=== PATIENT | female | born 2000 | race Caucasian/White ===

== ENCOUNTER → 2018-02-19 | Outpatient (CLI) | payer BC ==
--- NOTE | 2018-02-19 13:00 | CT ---
EXAMINATION TYPE: CT abdomen pelvis wo con DATE OF EXAM: 02/19/2018 COMPARISON: None INDICATION: Left sided abdominal pain DLP: 356.0 mGycm, Automated exposure control for dose reduction was used. CONTRAST: 0 mL of Isovue 300. Study performed without Oral Contrast TECHNIQUE: Axial images were obtained from above the diaphragm to the pubic rami in the axial plane a t 5 mm thick sections. Reconstructed images are reviewed on the computer in the coronal plane. FINDINGS: Limited CT sections are obtained the lung bases. The lung bases are clear. CT ABDOMEN: Liver: Normal Spleen: Normal Pancreas: Normal Adrenal glands: The adrenal glands are normal. Gallbladder: Normal Kidneys: No masses are evident. No hydronephrosis is present. No cysts are present. Delayed images were obtained through the kidneys, which remain unremarkable. Aorta: Vascular calcification is within the aorta. Inferior vena cava: Normal. CT PELVIS: Loops of bowel within the abdomen and pelvis are normal. Studies without oral contrast limiting t he evaluation. Appendix: Limited evaluation. This may be retrocecal. No dilated tubular structures or inflammatory c hanges are evident. The cecum appears to lie deep within the pelvis. Urinary bladder: Normal. Genitourinary structures: There is a 4.3 x 5.4 cm left ovarian cyst. Correlate with location of the p atient's pain. Pelvic ultrasound could be performed. No free fluid is within the pelvis. Osseous structures: No suspicious lytic or sclerotic lesions. IMPRESSIONS: 1. There appears be a large left ovarian cyst. Pelvic ultrasound recommended for additional evaluati on.
== END | disposition home or self-care (01) ==
LOC: RADCTMAIN 12:05
PROVIDERS: ATTEND Nurse Practitioner Family
DX: R10.9 Unspecified abdominal pain (principal)
CPT/HCPCS: 74176

== ENCOUNTER 2018-03-11 16:11 | Emergency (ER) | payer BC ==
[2018-03-11] MEDS ORDERED: ONDANSETRON 4 MG/2 ML VIAL IVP STA (16:34)
[2018-03-11] MEDS ORDERED: SODIUM CHLORIDE 0.9% 1,000 ML IV STA (16:34)
[2018-03-11] MEDS ORDERED: KETOROLAC 30 MG/ML 1 ML VIAL IVP STA (16:34)
[2018-03-11 17:06] LABS: Basophils % (A) 0 %; Eosinophils # (A) 0.1 k/uL (0-0.7); Eosinophils % (A) 1 %; HCT 39.6 % (34.0-46.0); Lymphocytes # (A) 3.2 k/uL (1.0-4.8); Lymphocytes % (A) 40 %; MCH 30.6 pg (25.0-35.0); MCHC 32.9 g/dL (31.0-37.0); Mean Platelet Volume 6.9; Monocytes # (A) 0.3 k/uL (0-1.0); Monocytes % (A) 3 %; Neutrophils # (A) 4.3 k/uL (1.3-7.7); Neutrophils % (A) 54 %; Platelet Count 279 k/uL (150-450); RBC 4.26 m/uL (3.80-5.40); RDW 12.4 % (11.5-15.5)
[2018-03-11 17:13] LABS: ALT 25 U/L (9-52); AST 21 U/L (14-36); Albumin 4.2 g/dL (3.5-5.0); Alkaline Phosphatase 31 U/L (38-126); Amylase 59 U/L (30-110); Anion Gap 7 mmol/L; Blood Urea Nitrogen 14 mg/dL (7-17); Calcium 9.5 mg/dL (8.4-10.2); Carbon Dioxide 26 mmol/L (22-30); Chloride 106 mmol/L (98-107); Glucose 88 mg/dL (74-99); Lipase 75 U/L (23-300); Potassium 4.6 mmol/L (3.5-5.1); Sodium 139 mmol/L (137-145); Total Bilirubin 0.5 mg/dL (0.2-1.3); Total Protein 7.4 g/dL (6.3-8.2)
--- NOTE | 2018-03-11 17:25 | ED ---
Abdominal Pain HPI - General Chief Complaint: Abdominal Pain Stated Complaint: Abd.pain Time Seen by Provider: 03/11/18 16:18 Source: patient, RN notes reviewed Mode of arrival: ambulatory Limitations: no limitations - History of Present Illness Initial Comments: 17-year-old female presents emergency Department chief complaint of left-sided abdominal pain. Patient states she's been having ongoing symptoms in which she had a recent CT at the beginning a month for. Patient was noted have ovarian cysts had no further ultrasound. They told her that was probably not causing her symptoms. Patient does state the pain to her lower abdomen at this time. She states is constant pain but does wax and wane. She's had no hematuria, dysuria, vaginal bleeding, vaginal discharge, diarrhea, constipation, fever, chills. She does admit to slight nausea, diarrhea. Patient states she felt like she was given a pass out from the pain today. - Related Data Home Medications Medication Instructions Recorded Confirmed Levothyroxine Sodium [Synthroid] 125 mcg PO DAILY 03/11/18 03/11/18 Norgestimate-Ethinyl Estradiol 1 tab PO HS 03/11/18 03/11/18 [Ortho Tri-Cyclen 28 Tablet] Previous Rx's Medication Instructions Recorded Ibuprofen [Motrin] 600 mg PO Q8HR PRN #30 tab 03/11/18 Allergies Allergy/AdvReac Type Severity Reaction Status Date / Time Sulfa (Sulfonamide AdvReac Nausea & Verified 03/11/18 16:27 Antibiotics) Vomiting Review of Systems ROS Statement: Those systems with pertinent positive or pertinent negative responses have been documented in the HPI. ROS Other: All systems not noted in ROS Statement are negative. Past Medical History Past Medical History: No Reported History History of Any Multi-Drug Resistant Organisms: None Reported Past Surgical History: No Surgical Hx Reported Past Psychological History: No Psychological Hx Reported Smoking Status: Never smoker Past Alcohol Use History: None Reported Past Drug Use History: None Reported General Exam Limitations: no limitations General appearance: alert, in no apparent distress Head exam: Present: atraumatic, normocephalic, normal inspection Eye exam: Present: normal appearance, PERRL, EOMI. Absent: scleral icterus, conjunctival injection, periorbital swelling ENT exam: Present: normal exam, normal oropharynx, mucous membranes moist Neck exam: Present: normal inspection. Absent: tenderness, meningismus, lymphadenopathy Respiratory exam: Present: normal lung sounds bilaterally. Absent: respiratory distress, wheezes, rales, rhonchi, stridor Cardiovascular Exam: Present: regular rate, normal rhythm, normal heart sounds. Absent: systolic murmur, diastolic murmur, rubs, gallop, clicks GI/Abdominal exam: Present: soft, tenderness (Mild to moderate left lower quadrant tenderness), normal bowel sounds. Absent: distended, guarding, rebound , rigid Back exam: Absent: CVA tenderness (R), CVA tenderness (L) Neurological exam: Present: alert, oriented X3, CN II-XII intact Skin exam: Present: warm, dry, intact, normal color. Absent: rash Course Vital Signs 03/11/18 03/11/18 03/11/18 16:14 17:00 18:00 Temperature 97.6 F Pulse Rate 67 Respiratory 20 18 16 Rate Blood Pressure 148/83 119/83 117/62 O2 Sat by Pulse 99 99 98 Oximetry 03/11/18 03/11/18 18:30 19:00 Temperature Pulse Rate 85 Respiratory 16 18 Rate Blood Pressure 119/77 122/76 O2 Sat by Pulse 98 98 Oximetry Medical Decision Making - Medical Decision Making 17-year-old female presents emergency department for left-sided abdominal pain. Patient had recent CT which showed ovarian cyst. Patient pain is lower in that region. He states WAS OBTAINED RECOMMENDED BY RADIOLOGIST WHICH SHOWED SIMPLE APPEARING CYST. PATIENT HAS OTHERWISE NORMAL LAB WORK, URINALYSIS. PATIENT WILL BE DISCHARGED WITH PAIN MEDICATION, FOLLOW-UP WITH [facility]. - Lab Data Result diagrams: 03/11/18 16:49 03/11/18 16:49 Lab Results 03/11/18 03/11/18 03/11/18 Range/Units 16:49 16:49 16:49 WBC 8.0 (4.0-11.0) k/uL RBC 4.26 (3.80-5.40) m/uL Hgb 13.0 (11.4-16.0) gm/dL Hct 39.6 (34.0-46.0) % MCV 93.0 (80.0-100.0) fL MCH 30.6 (25.0-35.0) pg MCHC 32.9 (31.0-37.0) g/dL RDW 12.4 (11.5-15.5) % Plt Count 279 (150-450) k/uL Neutrophils % 54 % Lymphocytes % 40 % Monocytes % 3 % Eosinophils % 1 % Basophils % 0 % Neutrophils # 4.3 (1.3-7.7) k/uL Lymphocytes # 3.2 (1.0-4.8) k/uL Monocytes # 0.3 (0-1.0) k/uL Eosinophils # 0.1 (0-0.7) k/uL Basophils # 0.0 (0-0.2) k/uL D-Dimer (<0.60) mg/L FEU Sodium 139 (137-145) mmol/L Potassium 4.6 (3.5-5.1) mmol/L Chloride 106 (98-107) mmol/L Carbon Dioxide 26 (22-30) mmol/L Anion Gap 7 mmol/L BUN 14 (7-17) mg/dL Creatinine 0.69 (0.52-1.04) mg/dL Est GFR (CKD-EPI)AfAm >90 (>60 ml/min/1.73 sqM) Est GFR (CKD-EPI)NonAf >90 (>60 ml/min/1.73 sqM) Glucose 88 (74-99) mg/dL Plasma Lactic Acid George 0.8 (0.7-2.0) mmol/L Calcium 9.5 (8.4-10.2) mg/dL Magnesium (1.6-2.3) mg/dL Total Bilirubin 0.5 (0.2-1.3) mg/dL AST 21 (14-36) U/L ALT 25 (9-52) U/L Alkaline Phosphatase 31 L (38-126) U/L Troponin I (0.000-0.034) ng/mL Total Protein 7.4 (6.3-8.2) g/dL Albumin 4.2 (3.5-5.0) g/dL Amylase 59 (30-110) U/L Lipase 75 (23-300) U/L Urine Color Urine Appearance (Clear) Urine pH (5.0-8.0) Ur Specific Rose (1.001-1.035) Urine Protein (Negative) Urine Glucose (UA) (Negative) Urine Ketones (Negative) Urine Blood (Negative) Urine Nitrite (Negative) Urine Bilirubin (Negative) Urine Urobilinogen (<2.0) mg/dL Ur Leukocyte Esterase (Negative) Urine HCG, Qual (Not Detectd) 03/11/18 03/11/18 03/11/18 Range/Units 16:49 16:49 16:49 WBC (4.0-11.0) k/uL RBC (3.80-5.40) m/uL Hgb (11.4-16.0) gm/dL Hct (34.0-46.0) % MCV (80.0-100.0) fL MCH (25.0-35.0) pg MCHC (31.0-37.0) g/dL RDW (11.5-15.5) % Plt Count (150-450) k/uL Neutrophils % % Lymphocytes % % Monocytes % % Eosinophils % % Basophils % % Neutrophils # (1.3-7.7) k/uL Lymphocytes # (1.0-4.8) k/uL Monocytes # (0-1.0) k/uL Eosinophils # (0-0.7) k/uL Basophils # (0-0.2) k/uL D-Dimer 0.30 (<0.60) mg/L FEU Sodium (137-145) mmol/L Potassium (3.5-5.1) mmol/L Chloride (98-107) mmol/L Carbon Dioxide (22-30) mmol/L Anion Gap mmol/L BUN (7-17) mg/dL Creatinine (0.52-1.04) mg/dL Est GFR (CKD-EPI)AfAm (>60 ml/min/1.73 sqM) Est GFR (CKD-EPI)NonAf (>60 ml/min/1.73 sqM) Glucose (74-99) mg/dL Plasma Lactic Acid George (0.7-2.0) mmol/L Calcium (8.4-10.2) mg/dL Magnesium 2.0 (1.6-2.3) mg/dL Total Bilirubin (0.2-1.3) mg/dL AST (14-36) U/L ALT (9-52) U/L Alkaline Phosphatase (38-126) U/L Troponin I <0.012 (0.000-0.034) ng/mL Total Protein (6.3-8.2) g/dL Albumin (3.5-5.0) g/dL Amylase (30-110) U/L Lipase (23-300) U/L Urine Color Urine Appearance (Clear) Urine pH (5.0-8.0) Ur Specific Rose (1.001-1.035) Urine Protein (Negative) Urine Glucose (UA) (Negative) Urine Ketones (Negative) Urine Blood (Negative) Urine Nitrite (Negative) Urine Bilirubin (Negative) Urine Urobilinogen (<2.0) mg/dL Ur Leukocyte Esterase (Negative) Urine HCG, Qual (Not Detectd) 03/11/18 03/11/18 Range/Units 18:30 18:30 WBC (4.0-11.0) k/uL RBC (3.80-5.40) m/uL Hgb (11.4-16.0) gm/dL Hct (34.0-46.0) % MCV (80.0-100.0) fL MCH (25.0-35.0) pg MCHC (31.0-37.0) g/dL RDW (11.5-15.5) % Plt Count (150-450) k/uL Neutrophils % % Lymphocytes % % Monocytes % % Eosinophils % % Basophils % % Neutrophils # (1.3-7.7) k/uL Lymphocytes # (1.0-4.8) k/uL Monocytes # (0-1.0) k/uL Eosinophils # (0-0.7) k/uL Basophils # (0-0.2) k/uL D-Dimer (<0.60) mg/L FEU Sodium (137-145) mmol/L Potassium (3.5-5.1) mmol/L Chloride (98-107) mmol/L Carbon Dioxide (22-30) mmol/L Anion Gap mmol/L BUN (7-17) mg/dL Creatinine (0.52-1.04) mg/dL Est GFR (CKD-EPI)AfAm (>60 ml/min/1.73 sqM) Est GFR (CKD-EPI)NonAf (>60 ml/min/1.73 sqM) Glucose (74-99) mg/dL Plasma Lactic Acid George (0.7-2.0) mmol/L Calcium (8.4-10.2) mg/dL Magnesium (1.6-2.3) mg/dL Total Bilirubin (0.2-1.3) mg/dL AST (14-36) U/L ALT (9-52) U/L Alkaline Phosphatase (38-126) U/L Troponin I (0.000-0.034) ng/mL Total Protein (6.3-8.2) g/dL Albumin (3.5-5.0) g/dL Amylase (30-110) U/L Lipase (23-300) U/L Urine Color Light Yellow Urine Appearance Clear (Clear) Urine pH 5.5 (5.0-8.0) Ur Specific Rose 1.015 (1.001-1.035) Urine Protein Negative (Negative) Urine Glucose (UA) Negative (Negative) Urine Ketones Trace H (Negative) Urine Blood Negative (Negative) Urine Nitrite Negative (Negative) Urine Bilirubin Negative (Negative) Urine Urobilinogen <2.0 (<2.0) mg/dL Ur Leukocyte Esterase Negative (Negative) Urine HCG, Qual Not Detected (Not Detectd) 03/11/18 18:44 EKG performed at 18:25 normal sinus rhythm with a right axis rate of 63 OR 198 QRS 90 QT/QTC 410/419 is noted inverted T waves V1 through V4 Disposition Clinical Impression: Ovarian cyst, Abdominal pain, Vasovagal syncope Disposition: HOME SELF-CARE Condition: Stable Instructions: Ovarian Cyst (ED) Additional Instructions: Please return to the Emergency Department if symptoms worsen or any other concerns. Prescriptions: Ibuprofen [Motrin] 600 mg PO Q8HR PRN #30 tab PRN Reason: Pain Is patient prescribed a controlled substance at d/c from ED?: No Referrals: Yoanna Hernandez DO [Primary Care Provider] - 1-2 days Time of Disposition: 19:50
[2018-03-11 18:52] LABS: Appearance,Urine Clear (Clear); Bilirubin,Urine Negative (Negative); Blood,Urine Negative (Negative); Color,Urine Light Yellow; Glucose,Urine (UA) Negative (Negative); Ketones,Urine Trace (Negative); Leukocyte Esterase,Urine Negative (Negative); Nitrite,Urine Negative (Negative); PH, Urine 5.5 (5.0-8.0); Protein,Urine Negative (Negative); Specific Gravity,Urine 1.015 (1.001-1.035); Urobilinogen,Urine <2.0 mg/dL (<2.0)
[2018-03-11] MEDS ORDERED: MORPHINE SULFATE 2 MG/ML SYRINGE IVP STA (19:20)
[2018-03-11 19:25] VITALS: RESP 18
--- NOTE | 2018-03-11 19:33 | US ---
EXAMINATION TYPE: US transvaginal DATE OF EXAM: 03/11/2018 COMPARISON: CLINICAL HISTORY: Pain. Left side pain. Nausea. TECHNIQUE: Transvaginal (TV). Date of LMP: 03/01/2018, G0 EXAM MEASUREMENTS: Uterus: 8.1 x 4.6 x 3.3 cm Endometrial Stripe: 0.4 cm Right Ovary: 3.0 x 1.3 x 1.4 cm Left Ovary: 3.4 x 2.4 x 2.3 cm 1. Uterus: Anteverted wnl 2. Endometrium: wnl 3. Right Ovary: follicles seen 4. Left Ovary: cystic appearing lesion- 3.3 x 1.7 x 1.2 cm Spectral, color and waveform doppler imaging shows good arterial and venous flow within the ovaries ; there is no evidence for ovarian torsion. 5. Bilateral Adnexa: wnl 6. Posterior cul-de-sac: no free fluid cervix- wnl IMPRESSION: Normal uterus and endometrium. Simple left ovarian cyst. No evidence of ovarian torsion.
[2018-03-11] MEDS ORDERED: ACET/COD 300 MG/30 MG STARTER PACK 6 TAB BTL PO STA (19:49)
[2018-03-11 19:57] VITALS: BP 114/69; PULSE 69
[2018-03-11 20:08] VITALS: TEMP 98
== END 2018-03-11 20:06 | disposition home or self-care (01) ==
LOC: EC 16:11
DX: N83.202 Unspecified ovarian cyst, left side (principal); R55 Syncope and collapse; R94.31 Abnormal electrocardiogram [ECG] [EKG]; R11.0 Nausea; R19.7 Diarrhea, unspecified; Z88.2 Allergy status to sulfonamides; Z79.3 Long term (current) use of hormonal contraceptives; Z79.899 Other long term (current) drug therapy
CPT/HCPCS: 96375 ×3; 96361 ×2; 96374 ×2; 99284; 36415; 93005; 85379; 80053; 82150; 83605; 83690; 83735; 84484; 85025; 81003; 81025; 93975; 76830; J2405; J1885; J2270

== ENCOUNTER → 2020-06-09 | Outpatient (CLI) | payer BC ==
--- NOTE | 2020-06-09 10:00 | US ---
EXAMINATION TYPE: Transabdominal DATE OF EXAM: 06/09/2020 9:46 AM COMPARISON: NONE CLINICAL HISTORY: O46.91 BLEEDING/SPOTTING. Brown discharge, no cramping, G1 EXAM PERFORMED: OBTA EXAM MEASUREMENTS: GESTATIONAL AGE / DATING Physician Established: Not yet established Dates by LMP: (9 weeks/1 days) EDC: 01/11/2021 Dates by First Scan: [facility] Dates by Current Scan for: (8 weeks/6 days) EDC: 01/13/2021 MATERNAL ANATOMY Uterus: 10.6 x 7.8 x 7.7cm Right Ovary: 3.4 x 2.6 x 2.1cm Left Ovary: not seen due to bowel gas Post CDS / Adnexa: wnl Presence of free fluid: no Presence of corpus luteal cyst: yes, right ovary = 1.7cm Presence of subchorionic bleed: no GESTATION / SURVEY CRL: 2.1cm (8 weeks/6 days) MSD: wnl Yolk Sac (normal less than 6mm): 0.3cm Heart Rate: 167 bpm Rhythm: Normal IUP: Viable IUP Date of LMP: 04/06/2020 *spoke with Isaias at office, sending patient to office IMPRESSION: 1. Single intrauterine gestation estimated at 8 weeks 6 days gestation based on crown-rump length. Ca rdiac activity measures 167 bpm.
== END | disposition home or self-care (01) ==
LOC: RADUSWWP 09:24
PROVIDERS: ATTEND Obstetrics & Gynecology
DX: O46.91 Antepartum hemorrhage, unspecified, first trimester (principal); Z3A.08 8 weeks gestation of pregnancy
CPT/HCPCS: 76801

== ENCOUNTER 2020-07-31 10:04 | Emergency (ER) | payer BC ==
[2020-07-31 10:11] VITALS: RESP 18; TEMP 97
--- NOTE | 2020-07-31 10:22 | ED ---
General Adult HPI - General Chief complaint: Shortness of Breath Stated complaint: covid+/SOB Time Seen by Provider: 07/31/20 10:13 Source: patient Mode of arrival: ambulatory Limitations: no limitations - History of Present Illness Initial comments: 20-year-old female currently 16 weeks presents for multiple complaints. Patient reports her tested positive for Meneses virus last week. Patient states she herself for the past 4 days has had a cough and shortness of breath. She has not had any fevers that she is aware of. Patient also states that she is having lower abdominal cramping and is concerned given her . No vaginal bleeding.Patient has no other complaints at this time including chest pain, nausea or vomiting, headache, or visual changes. - Related Data Home Medications Medication Instructions Recorded Confirmed Levothyroxine Sodium 137 mcg PO DAILY 07/31/20 07/31/20 Twh-Sccx-Frdxy Acid 1 cap PO DAILY 07/31/20 07/31/20 [-U Capsule (formulary)] Allergies Allergy/AdvReac Type Severity Reaction Status Date / Time Sulfa (Sulfonamide Allergy Anaphylaxis Verified 07/31/20 12:28 Antibiotics) Review of Systems ROS Statement: Those systems with pertinent positive or pertinent negative responses have been documented in the HPI. ROS Other: All systems not noted in ROS Statement are negative. Past Medical History Past Medical History: No Reported History Additional Past Medical History / Comment(s): OVARIAN CYSTS History of Any Multi-Drug Resistant Organisms: None Reported Past Surgical History: No Surgical Hx Reported Additional Past Surgical History / Comment(s): endometeriosis symptoms Past Psychological History: No Psychological Hx Reported Smoking Status: Never smoker Past Alcohol Use History: None Reported Past Drug Use History: None Reported General Exam Limitations: no limitations General appearance: alert Head exam: Present: atraumatic, normocephalic, normal inspection Eye exam: Present: normal appearance ENT exam: Present: normal exam, mucous membranes moist Neck exam: Present: normal inspection. Absent: tenderness, meningismus, lymphadenopathy Respiratory exam: Present: normal lung sounds bilaterally. Absent: respiratory distress, wheezes, rales, rhonchi, stridor Cardiovascular Exam: Present: regular rate, normal rhythm, normal heart sounds. Absent: systolic murmur, diastolic murmur, rubs, gallop, clicks GI/Abdominal exam: Present: soft, tenderness (Minimal suprapubic tenderness), normal bowel sounds. Absent: distended, guarding, rebound, rigid Course Vital Signs 07/31/20 07/31/20 10:08 11:25 Temperature 97 F L Pulse Rate 73 72 Respiratory 18 18 Rate Blood Pressure 123/81 109/64 O2 Sat by Pulse 98 97 Oximetry Medical Decision Making - Medical Decision Making Vitals are stable. CBC CMP unremarkable. Coronavirus is detected. Chest x-ray shows left greater than right basilar opacities consistent with COVID-19 infection. Ultrasound shows a single live intrauterine with average gestational age of 16 weeks. At this time patient is stable for discharge home. She will follow up with primary care and [facility]. I did discuss that she needs to quarantine. She'll return here for any worsening symptoms Pt does not qualify for antibody infusion. - Lab Data Result diagrams: 07/31/20 10:46 07/31/20 10:46 Lab Results 07/31/20 07/31/20 07/31/20 Range/Units 10:46 10:46 10:46 WBC 6.7 (3.8-10.6) k/uL RBC 3.77 L (3.80-5.40) m/uL Hgb 12.6 (11.4-16.0) gm/dL Hct 35.4 (34.0-46.0) % MCV 93.9 (80.0-100.0) fL MCH 33.5 (25.0-35.0) pg MCHC 35.7 (31.0-37.0) g/dL RDW 12.4 (11.5-15.5) % Plt Count 166 (150-450) k/uL MPV 7.8 Neutrophils % 62 % Lymphocytes % 33 % Monocytes % 4 % Eosinophils % 0 % Basophils % 0 % Neutrophils # 4.2 (1.3-7.7) k/uL Lymphocytes # 2.2 (1.0-4.8) k/uL Monocytes # 0.2 (0-1.0) k/uL Eosinophils # 0.0 (0-0.7) k/uL Basophils # 0.0 (0-0.2) k/uL Sodium 133 L (137-145) mmol/L Potassium 3.8 (3.5-5.1) mmol/L Chloride 105 (98-107) mmol/L Carbon Dioxide 22 (22-30) mmol/L Anion Gap 6 mmol/L BUN 7 (7-17) mg/dL Creatinine 0.57 (0.52-1.04) mg/dL Est GFR (CKD-EPI)AfAm >90 (>60 ml/min/1.73 sqM) Est GFR (CKD-EPI)NonAf >90 (>60 ml/min/1.73 sqM) Glucose 81 (74-99) mg/dL Calcium 8.4 (8.4-10.2) mg/dL Total Bilirubin 0.3 (0.2-1.3) mg/dL AST 19 (14-36) U/L ALT 8 (4-34) U/L Alkaline Phosphatase 45 (38-126) U/L Total Protein 6.4 (6.3-8.2) g/dL Albumin 3.5 (3.5-5.0) g/dL Coronavirus (PCR) Detected A (Not Detectd) Disposition Clinical Impression: COVID-19, 16 weeks gestation of Disposition: HOME SELF-CARE Condition: Good Instructions (If sedation given, give patient instructions): Coronavirus Disease 2019 (COVID-19), (ED) Additional Instructions: Please drink plenty of fluids. Take Tylenol for pain or fever. Please follow- up with primary care in 1-2 days. Follow-up with [facility] as well. Return to the emergency room for any worsening symptoms. Is patient prescribed a controlled substance at d/c from ED?: No Referrals: Yoanna Hernandez DO [Primary Care Provider] - 1-2 days Time of Disposition: 13:08
[2020-07-31 11:12] LABS: Basophils % (A) 0 %; Eosinophils % (A) 0 %; HCT 35.4 % (34.0-46.0); HGB 12.6 gm/dL (11.4-16.0); Lymphocytes # (A) 2.2 k/uL (1.0-4.8); Lymphocytes % (A) 33 %; MCH 33.5 pg (25.0-35.0); MCHC 35.7 g/dL (31.0-37.0); MCV 93.9 fL (80.0-100.0); Mean Platelet Volume 7.8; Monocytes # (A) 0.2 k/uL (0-1.0); Monocytes % (A) 4 %; Neutrophils # (A) 4.2 k/uL (1.3-7.7); Neutrophils % (A) 62 %; Platelet Count 166 k/uL (150-450); RBC 3.77 m/uL (3.80-5.40); RDW 12.4 % (11.5-15.5); WBC 6.7 k/uL (3.8-10.6)
[2020-07-31 11:27] LABS: ALT 8 U/L (4-34); AST 19 U/L (14-36); African American GFR (CKD) >90 (>60 ml/min/1.73 sqM); Albumin 3.5 g/dL (3.5-5.0); Alkaline Phosphatase 45 U/L (38-126); Anion Gap 6 mmol/L; Blood Urea Nitrogen 7 mg/dL (7-17); Calcium 8.4 mg/dL (8.4-10.2); Carbon Dioxide 22 mmol/L (22-30); Chloride 105 mmol/L (98-107); Glucose 81 mg/dL (74-99); Non-African American GFR(CKD) >90 (>60 ml/min/1.73 sqM); Potassium 3.8 mmol/L (3.5-5.1); Sodium 133 mmol/L (137-145); Total Bilirubin 0.3 mg/dL (0.2-1.3); Total Protein 6.4 g/dL (6.3-8.2)
--- NOTE | 2020-07-31 11:36 | US ---
EXAMINATION TYPE: US OB >= 14 wk fetus DATE OF EXAM: 07/31/2020 COMPARISON: None CLINICAL HISTORY: 20-year-old female pain TECHNIQUE: Transabdominal scanning GESTATIONAL AGE / DATING Dates by LMP: patient unsure Dates by First Scan: None at this facility Dates by Current Scan: (16 weeks/3 days) EDC: 01-12-21 SURVEY IUP: Single PLACENTA: Posterior, fundal PREVIA: No Previa LYNN: 11.5 cm CERVICAL LENGTH (transabdominal: norm > 3.0cm): 4.1 cm BIOMETRY PRESENTATION: Vertex BPD: 3.4 cm 16 weeks / 2 days HC: 12.6 cm 16 weeks / 2 days AC: 10.1 cm 16 weeks / 1 days FL: 2.1 cm 16 weeks / 1 days ESTIMATED WEIGHT IN GRAMS: 147 grams ESTIMATED WEIGHT IN LBS/OZ: 0 lbs. 5 oz. WEIGHT PERCENTAGE BASED ON ESTABLISHED DATES: 80.7 % HC/AC: 1.24 (normal 1.06-1.32) FL/AC: 20.3 HEART RATE: 135 bpm RHYTHM: Normal IMPRESSION: 1. Single live intrauterine with average gestational age of 16 weeks 3 days by current ultr asound biometry. 2. Complete survey recommended at 18-20 weeks.
--- NOTE | 2020-07-31 12:35 | XR ---
EXAMINATION TYPE: XR chest 1V DATE OF EXAM: 07/31/2020 COMPARISON: NONE HISTORY: Cough and shortness of breath. COVID positive. TECHNIQUE: Single AP portable frontal upright view of the chest is obtained. FINDINGS: There is patchy increased opacities in the lower lungs left greater than right. No silhoue tting of heart borders are hemidiaphragm seen currently. The cardiac silhouette size is within normal limits. The osseous structures are intact. IMPRESSION: Left greater than right basilar opacities consistent with covid-19 infection.
[2020-07-31 13:33] VITALS: BP 108/64; PULSE 66
[2020-07-31 14:39] LABS: Amorphous Sediment,Urine Rare /hpf; Appearance,Urine Cloudy (Clear); Bacteria,Urine Moderate /hpf; Bilirubin,Urine Negative (Negative); Blood,Urine Negative (Negative); Color,Urine Yellow; Glucose,Urine (UA) Negative (Negative); Ketones,Urine Negative (Negative); Leukocyte Esterase,Urine Negative (Negative); Mucus,Urine Rare /hpf; Nitrite,Urine Negative (Negative); PH, Urine 7.5 (5.0-8.0); Protein,Urine Negative (Negative); Specific Gravity,Urine 1.015 (1.001-1.035); Squamous Epithelial Cell,Urine 1 /hpf (0-4); Urobilinogen,Urine <2.0 mg/dL (<2.0); WBC,Urine 1 /hpf (0-5)
== END 2020-07-31 15:05 | disposition home or self-care (01) ==
LOC: EC 10:04
DX: O98.512 Other viral diseases complicating pregnancy, second trimester (principal); U07.1 COVID-19; Z3A.16 16 weeks gestation of pregnancy
CPT/HCPCS: 36415; 71045; 76805; 80053; 81001; 85025; 87635; 99285

== ENCOUNTER 2020-10-20 17:55 | Outpatient (CLI) | payer BC ==
[2020-10-20] MEDS ORDERED: LACTATED RINGERS 1,000 ML IV ONE (18:45)
[2020-10-20 18:52] VITALS: BP 111/73; PULSE 82; RESP 18
[2020-10-20] MEDS ORDERED: DEXTROSE 5%-LACTATED RINGERS 1,000 ML IV SCH (19:00)
--- NOTE | 2020-10-23 08:34 | P.MSEPDOC ---
Presenting Problems - Arrival Data Date of Arrival on Unit: 10/20/20 Time of Arrival on Unit: 17:55 Mode of Transport: Ambulatory - Complaint OB-Reason for Admission/Chief Complaint: Rule Out SROM Medical History - Information : 1 Para: 0 Term: 0 : 0 Abortions: Spontaneous or Elective: 0 Number of Living Children: 0 - Gestational Age Gestational Age by TEQUILA (wks/days): 27 Weeks and 6 Days Review of Systems - Review of Systems Constitutional: No problems Breast: No problems ENT: No problems Cardiovascular: No problems Respiratory: No problems Gastrointestinal: No problems Genitourinary: No problems Musculoskeletal: No problems Neurological: No problems Skin: No problems Vital Signs - Pulse Right Pulse Rate: 82 Pulse Assessment Method: Pulse Oximetry - Respirations Respiratory Rate: 18 Oxygen Delivery Method: Room Air - Blood Pressure Right Arm Blood Pressure: 111/73 Blood Pressure Mean: 85 Blood Pressure Source: Automatic Cuff Medical Screen Scoring - Cervical Exam Dilation (cm): 0 Membranes: Intact - Uterine Contractions Intensity: Mild Resting: Soft to palpation Maternal Triage Index - Maternal Triage Index Presenting for scheduled procedure w/no complaint: No - Stat/Priority 1 Stat Priority 1: No - Urgent/Priority 2 Urgent Priority 2: Yes Provider Notified: Charu Venegas Provider Notified Time: 18:38 Criteria Met for Priority 2: Pt presented with c/o possible SROM & is 26.6 weeks gestation Disposition - Disposition OB Disposition: Physician follow up in office, Triage Discharge Date: 10/20/20 Discharge Time: 19:47 I agree with the RN Medical Screening Exam: Yes Case reviewed; plan agreed upon as documented in EMR&OBIX.: Yes Comments: Patient was neither seen nor examined by me. Diagnosis: FALSE LABOR, UNSPECIFIED
== END 2020-10-20 19:47 | disposition home or self-care (01) ==
LOC: FBPOP 17:55
PROVIDERS: ATTEND Obstetrics & Gynecology
DX: O26.892 Other specified pregnancy related conditions, second trimester (principal); O47.02 False labor before 37 completed weeks of gestation, second trimester; Z3A.27 27 weeks gestation of pregnancy
CPT/HCPCS: 84112; 96360; 96367; 99213; 99214

== ENCOUNTER 2021-01-08 09:35 | Inpatient (IN) | payer BC ==
[2021-01-08] MEDS ORDERED: TERBUTALINE 1 MG/ML VIAL SQ PRN (10:49)
[2021-01-08] MEDS ORDERED: METHYLERGONOVINE 0.2 MG/ML 1 ML AMP IM PRN (10:49)
[2021-01-08] MEDS ORDERED: LIDOCAINE 0.5% (PF) 5 MG/ML (50 ML SDV) SQ PRN (10:49)
[2021-01-08] MEDS ORDERED: CARBOPROST TROMETHAMINE 250 MCG/ML 1 ML AMP IM PRN (10:49)
[2021-01-08] MEDS ORDERED: OXYTOCIN 10 UNIT/ML 1 ML VIAL IM PRN (10:49)
[2021-01-08] MEDS ORDERED: BUTORPHANOL 1 MG/ML 1 ML VIAL IV PRN (10:51)
[2021-01-08] MEDS: LACTATED RINGERS 1,000 ML IV SCH ×3 (11:04→16:25)
[2021-01-08 11:18] LABS: Basophils % (A) 0 %; Eosinophils # (A) 0.1 k/uL (0-0.7); Eosinophils % (A) 1 %; HCT 37.7 % (34.0-46.0); HGB 12.8 gm/dL (11.4-16.0); Lymphocytes # (A) 2.8 k/uL (1.0-4.8); Lymphocytes % (A) 27 %; MCHC 33.8 g/dL (31.0-37.0); MCV 94.7 fL (80.0-100.0); Mean Platelet Volume 8.7; Monocytes # (A) 0.3 k/uL (0-1.0); Monocytes % (A) 3 %; Neutrophils # (A) 7.1 k/uL (1.3-7.7); Neutrophils % (A) 68 %; Platelet Count 214 k/uL (150-450); RBC 3.99 m/uL (3.80-5.40); RDW 13.1 % (11.5-15.5); WBC 10.5 k/uL (3.8-10.6)
--- NOTE | 2021-01-08 12:25 | P.HPOB ---
History of Present Illness H&P Date: 01/08/21 Chief Complaint: 39+ weeks, active labor The patient is a 20-year-old 1 para 0 admitted at 39+ weeks as established by last menstrual period and 9 week ultrasound. She is admitted in active labor having made cervical change with regular contractions in triage today. Her has been essentially compensated though she did have COVID-19 during the but has had no subsequent issues. On labor and delivery, all signs reassuring with a category 1 heart rate tracing. Group B strep status is negative. Obstetrical history: 1 para 0 with current statistics listed in history present illness. EDC of 01/13/2021 was established by last menstrual period and confirmed by 9 week ultrasound. Laboratory workup demonstrates a blood type of A+ with a negative antibody screen Green. The remainder of the laboratory workup was within normal limits aside from a low-grade Pap which will be repeated . One hour Glucola was normal and group B strep status is negative. Gynecologic history: Unremarkable with no history of any infections to include STDs. Review of Systems Review of systems is confined to history of present illness. Past Medical History Past Medical History: Thyroid Disorder Additional Past Medical History / Comment(s): OVARIAN CYSTS, hypothyroid History of Any Multi-Drug Resistant Organisms: None Reported Past Surgical History: No Surgical Hx Reported Additional Past Surgical History / Comment(s): endometeriosis symptoms, ovarian cysts removed Past Anesthesia/Blood Transfusion Reactions: No Reported Reaction Past Psychological History: No Psychological Hx Reported Smoking Status: Never smoker Past Alcohol Use History: None Reported Past Drug Use History: None Reported - Past Family History Father Family Medical History: Thyroid Disorder Medications and Allergies Home Medications Medication Instructions Recorded Confirmed Type Nov-Rvnn-Beiid Acid 1 cap PO DAILY 07/31/20 01/08/21 History [-U Capsule (formulary)] Levothyroxine Sodium [Synthroid] 1 tab PO DAILY 10/20/20 01/08/21 History Allergies Allergy/AdvReac Type Severity Reaction Status Date / Time Sulfa (Sulfonamide Allergy Anaphylaxis Verified 01/08/21 09:40 Antibiotics) latex AdvReac Itching Verified 01/08/21 09:42 Exam Vital Signs Temp Pulse Resp BP 01/08/21 10:55 96.6 F L 84 16 128/73 Intake and Output 01/07/21 01/08/21 01/08/21 22:59 06:59 14:59 Other: Weight 92.533 kg In general, this is a well-developed, well-nourished white female in no acute distress. Her heart has a regular rhythm and rate without murmur. Her lungs are clear to auscultation bilaterally in all [place]. Her abdomen is gravid, nondistended, has normal active bowel sounds, soft, nontender, without any palpable masses aside from uterine fundus. Her extremities are without any cyanosis, clubbing, or edema and are nontender to palpation bilaterally. Digital cervical examination demonstrates her cervix to be 4 cm dilated, approximate 90% effaced, the vertex in presentation at -2 station. Artificial rupture of membranes is carried out demonstrating clear fluid. Results Result Diagrams: 01/08/21 11:03 Assessment and Plan (1) Active labor at term Current Visit: Yes Status: Acute Code(s): [id number] - SNOMED Code(s): 23244500 Plan: The patient is admitted for active management of labor. She will have close maternal and surveillance and expectant management will be practiced. She is a good candidate for either IV or epidural analgesia, whichever she may choose. Should she made no significant change in the next hour or 2, Pitocin augmentation will be added.
[2021-01-08] MEDS ORDERED: SODIUM CHLORIDE 0.9% 100 ML BAG ONE (14:15)
[2021-01-08] MEDS ORDERED: fentaNYL (PF) 50 MCG/ML 5 ML AMP ONE (14:15)
[2021-01-08] MEDS ORDERED: ROPIVACAINE 5MG/ML 20ML VIAL ONE (14:15)
[2021-01-08] MEDS ORDERED: HYDROcodone/APAP 7.5-325MG 1 EACH TAB PO PRN (17:16)
[2021-01-08] MEDS ORDERED: diphenhydrAMINE 50 MG/ML 1 ML VIAL IVP PRN ×2 (17:16)
[2021-01-08] MEDS ORDERED: diphenhydrAMINE 25 MG CAP PO PRN (17:16)
[2021-01-08] MEDS ORDERED: HYDROcodone/APAP 5-325MG 1 EACH TAB PO PRN (17:16)
[2021-01-08] MEDS ORDERED: ZOLPIDEM 5 MG TAB PO PRN (17:16)
[2021-01-08] MEDS ORDERED: SIMETHICONE 80 MG CHEWABLE PO PRN (17:16)
[2021-01-08] MEDS ORDERED: BENZOCAINE/MENTHOL SPRAY 1 GM/SPRAY AEROSOL TOPICAL PRN (17:16)
[2021-01-08] MEDS ORDERED: HYDROCORTISONE 2.5% RECTAL CREAM 30 GM TUBE RECTAL PRN (17:16)
[2021-01-08] MEDS ORDERED: diphenhydrAMINE 50 MG CAP PO PRN (17:16)
[2021-01-08] MEDS ORDERED: ACETAMINOPHEN TAB 325 MG TAB PO PRN (17:16)
[2021-01-08] MEDS ORDERED: LANOLIN CREAM 5 GM TUBE TOPICAL PRN (17:16)
--- NOTE | 2021-01-08 17:21 | P.PROBDLV ---
Vaginal Delivery Note - . Vaginal Delivery Note: The patient is a 20-year-old 1 para 0 admitted at 39-3/7 weeks by good dating parameters perches admitted in early active labor with all signs reassuring. Her has been uncomplicated and group B strep status is negative. On labor and delivery, she underwent artificial rupture of membranes for clear fluid. She progressed in the active phase of labor and had an epidural catheter placed for analgesia. She then progressed to complete and was allowed to labor down for a short period of time. She pushed over the course of approximately 5 contractions to a normal spontaneous vaginal delivery of a viable 8 lbs. 1 oz. baby girl with Apgars of 9 at 1 minute and 10 at 5 minutes delivered in the direct occiput anterior position. The nose and mouth were thoroughly suctioned on the perineum. The placenta was delivered spontaneously, intact, and grossly normal with a grossly normal, almost centrally inserted three-vessel cord. There was a small second-degree midline to slightly left lateral perineal laceration which was repaired in standard fashion using 3-0 chromic catgut without difficulty. Estimated blood loss for the case is approximately 200 mL. There were no complications. All sponge, instrument, needle counts were correct. Both mother and infant are resting comfortably in recovery.
[2021-01-08] MEDS ORDERED: OXYTOCIN 30 UNITS/500 ML NS 30 UNIT in SALINE 1 500ML.BAG IV SCH (17:30)
[2021-01-08] MEDS: SENNOSIDES-DOCUSATE SODIUM 1 EACH TAB PO SCH (23:10)
[2021-01-08] MEDS: IBUPROFEN 600 MG TAB PO PRN (23:10)
[2021-01-09 07:12] LABS: Basophils % (A) 0 %; Eosinophils # (A) 0.1 k/uL (0-0.7); Eosinophils % (A) 0 %; HCT 33.8 % (34.0-46.0); HGB 11.4 gm/dL (11.4-16.0); Lymphocytes % (A) 22 %; MCH 32.4 pg (25.0-35.0); MCHC 33.8 g/dL (31.0-37.0); MCV 95.7 fL (80.0-100.0); Monocytes # (A) 0.4 k/uL (0-1.0); Monocytes % (A) 3 %; Neutrophils # (A) 10.1 k/uL (1.3-7.7); Neutrophils % (A) 74 %; Platelet Count 178 k/uL (150-450); RBC 3.53 m/uL (3.80-5.40); RDW 13.1 % (11.5-15.5); WBC 13.7 k/uL (3.8-10.6)
[2021-01-09] MEDS: IBUPROFEN 600 MG TAB PO PRN (08:04)
[2021-01-09] MEDS: SENNOSIDES-DOCUSATE SODIUM 1 EACH TAB PO SCH (08:04)
--- NOTE | 2021-01-09 10:39 | P.DS ---
Providers Date of admission: 01/08/21 10:50 Expected date of discharge: 01/09/21 Attending physician: Dutch Mcknight Primary care physician: Stated None - Discharge Diagnosis(es) (1) Active labor at term Current Visit: Yes Status: Acute (2) Normal spontaneous vaginal delivery Current Visit: Yes Status: Acute Hospital Course: The patient is a 20-year-old 1 para 0 admitted at 39+ weeks by good dating parameters. She is admitted in early active labor with all signs reassuring. Her was uncomplicated and group B strep status is negative. On labor and delivery, she may progress into the active phase of labor and had an epidural catheter placed for analgesia. She then progressed to complete and pushed fairly quickly to a normal spontaneous vaginal delivery of a viable 8 lbs. 1 oz. baby girl with Apgars of 9 at 1 minute and 10 at 5 minutes. Her course was unremarkable with vital signs remaining stable and her temperature was afebrile throughout. She was deemed stable for discharge on day #1 and was discharged home to follow-up in the office in 6 weeks' time routinely. Discharge instructions included calling for any significantly increased bleeding or foul-smelling lochia, significantly increased fever abdominal pain, perineal complaints, breast complaints, or anything else that concerned her. She is additionally instructed to have nothing in the vagina for at least 6 weeks time to include intercourse. She understood her instructions and agrees to follow up as noted above. Discharge medications included continued vitamins as she has opted to breast-feed. She was otherwise to use [id number] analgesic pain medications as needed. Maternal blood type is A+ and rubella status is immune. Procedures: #1. Epidural analgesia #2. Normal spontaneous vaginal delivery #3. Repair of perineal laceration Patient Condition at Discharge: Stable Plan - Discharge Summary New Discharge Prescriptions: No Action Levothyroxine Sodium [Synthroid] 1 tab PO DAILY Usn-Mqjs-Clsuk Acid [-U Capsule (formulary)] 1 cap PO DAILY Discharge Medication List Aga-Otyq-Qjdhn Acid [-U Capsule (formulary)] 1 cap PO DAILY 07/31/20 [History] Levothyroxine Sodium [Synthroid] 1 tab PO DAILY 10/20/20 [History] Follow up Appointment(s)/Referral(s): Dutch Mcknight MD [STAFF PHYSICIAN] - 6 Weeks Discharge Disposition: HOME SELF-CARE
[2021-01-09 11:53] VITALS: RESP 16
[2021-01-09 17:09] VITALS: BP 126/80; PULSE 79; TEMP 98.2
== END 2021-01-09 19:00 | disposition home or self-care (01) | DRG 807 ==
LOC: FBPOP 09:35 → 4FBP 10:50
PROVIDERS: ADMIT Obstetrics & Gynecology; ATTEND Obstetrics & Gynecology
PROC: 10E0XZZ Delivery of Products of Conception, External Approach (ICD-10-PCS; principal; 2021-01-08)
PROC: 0KQM0ZZ Repair Perineum Muscle, Open Approach (ICD-10-PCS; 2021-01-08)
PROC: 10907ZC Drainage of Amniotic Fluid, Therapeutic from Products of Conception, Via Natural or Artificial Opening (ICD-10-PCS; 2021-01-08)
DX: O70.1 Second degree perineal laceration during delivery (principal); Z37.0 Single live birth; E03.9 Hypothyroidism, unspecified; O99.284 Endocrine, nutritional and metabolic diseases complicating childbirth; Z3A.39 39 weeks gestation of pregnancy; Z88.2 Allergy status to sulfonamides; Z91.040 Latex allergy status
CPT/HCPCS: 59025; 85025; 86850; 86900; 86901; 99213

== ENCOUNTER 2022-04-15 12:46 | Emergency (ER) | payer BC ==
--- NOTE | 2022-04-15 12:55 | ED ---
General Adult HPI - General Source: patient, RN notes reviewed Mode of arrival: ambulatory Limitations: no limitations <Cedrick Arvizu Missy - Last Filed: 04/15/22 12:52> <Bianca Ojeda - Last Filed: 04/17/22 15:45> - General Stated complaint: miscarriage Time Seen by Provider: 04/15/22 16:08 - History of Present Illness Initial comments: 21-year-old female presents emergency Department chief complaint vaginal bleeding and . Patient states that she is A1 states that she is currently 6 weeks . She states that she's had 2 prior hCG levels in which they told her it seemed to be going down. Patient had recent miscarriage prior to this. Patient states that the pain, bleeding bothering the emergency Department. She states she's had left-sided pelvic pain has not had prior ultrasound. Patient is A positive blood type. Patient states that she has a follow-up appointment with her FERMENTATION ENGINEER. (NolbertoCedrick Louis) 21-year-old female who is presents emergency room with vaginal bleeding. Reports that her last menstrual cycle was the end of February. States that she only had bleeding for 2 days and this is abnormal for her. Previous to this the patient had a miscarriage. She states that her beta Quant was never low down to 0. She ended up getting again in follow-up with her FERMENTATION ENGINEER Dr. Mcknight. Had laboratory tests drawn on Friday and . She states that her beta Quant went from 390-350. They stated that they were concerned for miscarriage. She has an appointment tomorrow to follow-up for further beta Quant testing. Reports that today she began having some thick clotting. Going through 1 pad per hour. She called the office and they told her to go into the emergency department. She denies any other vaginal discharge. No fevers. No abdominal trauma. Has been taking Tylenol with some improvement in her pain. Pain is located suprapubic and the left side. No history of ectopic. Blood type is A+. No other alleviating, precipitating or modifying factors (Bianca Ojeda) - Related Data Home Medications Medication Instructions Recorded Confirmed Levothyroxine Sodium 150 mcg PO HS 12/06/21 04/15/22 Allergies Allergy/AdvReac Type Severity Reaction Status Date / Time Sulfa (Sulfonamide Allergy Anaphylaxis Verified 04/15/22 17:04 Antibiotics) latex AdvReac Itching Verified 04/15/22 17:04 Review of Systems ROS Other: All systems not noted in ROS Statement are negative. <Cedrick Arvizu - Last Filed: 04/15/22 12:52> ROS Other: All systems not noted in ROS Statement are negative. <Bianca Ojeda - Last Filed: 04/17/22 15:45> ROS Statement: Those systems with pertinent positive or pertinent negative responses have been documented in the HPI. Past Medical History Past Medical History: Thyroid Disorder Additional Past Medical History / Comment(s): OVARIAN CYSTS, hypothyroid/graves disease History of Any Multi-Drug Resistant Organisms: None Reported Past Surgical History: No Surgical Hx Reported Additional Past Surgical History / Comment(s): endometeriosis symptoms, ovarian cysts removed Past Anesthesia/Blood Transfusion Reactions: No Reported Reaction Past Psychological History: No Psychological Hx Reported Smoking Status: Never smoker Past Alcohol Use History: None Reported Past Drug Use History: None Reported - Past Family History Father Family Medical History: Thyroid Disorder <Cedrick Arvizu - Last Filed: 04/15/22 12:52> General Exam General appearance: alert, in no apparent distress Head exam: Present: atraumatic, normocephalic, normal inspection Eye exam: Present: normal appearance, PERRL, EOMI. Absent: scleral icterus, conjunctival injection, periorbital swelling ENT exam: Present: normal exam, mucous membranes moist Neck exam: Present: normal inspection. Absent: tenderness, meningismus, lymphadenopathy Respiratory exam: Present: normal lung sounds bilaterally. Absent: respiratory distress, wheezes, rales, rhonchi, stridor Cardiovascular Exam: Present: regular rate, normal rhythm, normal heart sounds. Absent: systolic murmur, diastolic murmur, rubs, gallop, clicks GI/Abdominal exam: Present: soft, normal bowel sounds. Absent: distended, tenderness, guarding, rebound, rigid Extremities exam: Present: normal inspection, full ROM, normal capillary refill. Absent: tenderness, pedal edema, joint swelling, calf tenderness Back exam: Present: normal inspection Neurological exam: Present: alert, oriented X3, CN II-XII intact Psychiatric exam: Present: normal affect, normal mood Skin exam: Present: warm, dry, intact, normal color. Absent: rash <Bianca Ojeda - Last Filed: 04/17/22 15:45> Course Vital Signs 04/15/22 04/15/22 13:18 17:45 Temperature 98.4 F 98.5 F Pulse Rate 78 76 Respiratory 20 18 Rate Blood Pressure 116/70 118/78 O2 Sat by Pulse 99 98 Oximetry Medical Decision Making - Lab Data Result diagrams: 04/15/22 16:33 <Bianca Ojeda - Last Filed: 04/17/22 15:45> - Medical Decision Making Was pt. sent in by a medical professional or institution? OBGYN office Did you speak to anyone other than the patient for history? No Did you review nursing and triage notes? Yes and I agree Were old charts reviewed? None available Differential Diagnosis? miscarriage, ectopic , threatened miscarriage, subchorionic hemorrhage, ovarian cyst EKG interpreted by me (3pts min.)? no X-rays interpreted by me (1pt min.)? no CT interpreted by me (1pt min.)? no U/S interpreted by me (1pt. min.)? yes What testing was considered but not performed? (CT, X-rays, U/S, labs)? Why? none What meds were considered but not given? Why? none Did you discuss the management of the patient with other professionals? no Did you reconcile home meds? no Was smoking cessation discussed for >3mins.? no Was critical care preformed (if so, how long)? no Were there social determinants of health that impacted care today? How? (Homelessness, low income, unemployed, alcoholism, drug addiction, transportation, low edu. Level, literacy, decrease access to med. care, snf, rehab)? no Was there de-escalation of care discussed even if they declined? (Discuss DNR or withdrawal of care, Hospice)? no What co-morbidities impacted this encounter? (DM, HTN, Smoking, COPD, CAD, Cancer, CVA, Hep., AIDS, mental health diagnosis, sleep apnea, morbid obesity)? none Was patient admitted / discharged? On arrival the patient was placed into room 25. A thorough history and physical exam is performed. Laboratory studies are obtained which demonstrated beta Quant 293. Ultrasound does not demonstrate any intrauterine . She does have a follow-up appointment tomorrow with the FERMENTATION ENGINEER. Instructed that she needs repeat labs completed tomorrow. The labs need to be followed down to 0 to ensure that the patient has completed the miscarriage. She is instructed take Motrin alternating with Tylenol for pain and return for any worsening symptoms. Patient agreeable and discharged home in stable condition Undiagnosed new problem with uncertain prognosis? yes Drug Therapy requiring intensive monitoring for toxicity (Heparin, Nitro, Insulin, Cardizem)? no Were any procedures done? no Diagnosis/symptom? threatened miscarriage Acute, or Chronic, or Acute on Chronic? acute Uncomplicated (without systemic symptoms) or Complicated (systemic symptoms)? uncomplicated Side effects of treatment? no Exacerbation, Progression, or Severe Exacerbation] no Poses a threat to life or bodily function? yes (Bianca Ojeda) - Lab Data Lab Results 04/15/22 04/15/22 04/15/22 Range/Units 16:33 16:33 16:53 WBC 7.0 (3.8-10.6) k/uL RBC 4.11 (3.80-5.40) m/uL Hgb 13.3 (11.4-16.0) gm/dL Hct 38.7 (34.0-46.0) % MCV 94.1 (80.0-100.0) fL MCH 32.3 (25.0-35.0) pg MCHC 34.3 (31.0-37.0) g/dL RDW 12.1 (11.5-15.5) % Plt Count 204 (150-450) k/uL MPV 7.9 Neutrophils % 51 % Lymphocytes % 42 % Monocytes % 4 % Eosinophils % 1 % Basophils % 0 % Neutrophils # 3.5 (1.3-7.7) k/uL Lymphocytes # 3.0 (1.0-4.8) k/uL Monocytes # 0.2 (0-1.0) k/uL Eosinophils # 0.1 (0-0.7) k/uL Basophils # 0.0 (0-0.2) k/uL HCG, Quant 293.5 mIU/mL Urine Color Light Red Urine Appearance Cloudy H (Clear) Urine pH 5.0 (5.0-8.0) Ur Specific [place] 1.031 (1.001-1.035) Urine Protein 1+ H (Negative) Urine Glucose (UA) Negative (Negative) Urine Ketones Negative (Negative) Urine Blood Large H (Negative) Urine Nitrite Negative (Negative) Urine Bilirubin Negative (Negative) Urine Urobilinogen <2.0 (<2.0) mg/dL Ur Leukocyte Esterase Negative (Negative) Urine RBC >182 H (0-5) /hpf Urine WBC 4 (0-5) /hpf Ur Squamous Epith Cells 3 (0-4) /hpf Amorphous Sediment Rare H (None) /hpf Urine Mucus Moderate H (None) /hpf Disposition <Cedrick Arvizu - Last Filed: 04/15/22 12:52> Is patient prescribed a controlled substance at d/c from ED?: No Time of Disposition: 17:29 <Bianca Ojeda - Last Filed: 04/17/22 15:45> Clinical Impression: First trimester bleeding Disposition: HOME SELF-CARE Condition: Stable Instructions (If sedation given, give patient instructions): Threatened Miscarriage (ED) Additional Instructions: Please follow up at your scheduled appointment tomorrow. Your beta quant was 293. Referrals: Dutch Mcknight MD [STAFF PHYSICIAN] - 1-2 days
--- NOTE | 2022-04-15 16:15 | US ---
EXAMINATION TYPE: Ultrasound OB <= 14 week transvaginal DATE OF EXAM: 04/15/2022 3:54 PM COMPARISON: NONE CLINICAL HISTORY: 21-year-old female Vaginal bleeding and , left-sided pain. Bleeding heavil y. EXAM PERFORMED: Transabdominal (TA) FINDINGS: EXAM MEASUREMENTS: GESTATIONAL AGE / DATING Physician Established: Not yet established Dates by LMP: LMP unknown Dates by First Scan: No previous this is first scan Dates by Current Scan for: No IUP seen at this time MATERNAL ANATOMY Uterus: 9.4 x 4.4 x 5.1 cm Right Ovary: 3.2 x 1.1 x 2.4 cm Left Ovary: 2.3 x 1.7 x 1.5 cm Post CDS / Adnexa: wnl Presence of free fluid: no Presence of corpus luteal cyst: no GESTATION / SURVEY IUP: No IUP seen at this time Beta HcG (if available): Not available at this time IMPRESSION: No intrauterine identified at this time. If positive test, differential considera tions include too early to visualize intrauterine , nonvisualized ectopic , and nia led . Recommend serial beta hCG and ultrasound follow-up to ensure the appearance of a viabl e gestation.
[2022-04-15 16:42] LABS: Basophils % (A) 0 %; Eosinophils # (A) 0.1 k/uL (0-0.7); Eosinophils % (A) 1 %; HCT 38.7 % (34.0-46.0); HGB 13.3 gm/dL (11.4-16.0); Lymphocytes % (A) 42 %; MCH 32.3 pg (25.0-35.0); MCHC 34.3 g/dL (31.0-37.0); MCV 94.1 fL (80.0-100.0); Mean Platelet Volume 7.9; Monocytes # (A) 0.2 k/uL (0-1.0); Monocytes % (A) 4 %; Neutrophils # (A) 3.5 k/uL (1.3-7.7); Neutrophils % (A) 51 %; Platelet Count 204 k/uL (150-450); RBC 4.11 m/uL (3.80-5.40); RDW 12.1 % (11.5-15.5)
[2022-04-15 18:08] LABS: Amorphous Sediment,Urine Rare /hpf; Appearance,Urine Cloudy (Clear); Bilirubin,Urine Negative (Negative); Blood,Urine Large (Negative); Color,Urine Light Red; Glucose,Urine (UA) Negative (Negative); Ketones,Urine Negative (Negative); Leukocyte Esterase,Urine Negative (Negative); Mucus,Urine Moderate /hpf; Nitrite,Urine Negative (Negative); Protein,Urine 1+ (Negative); RBC,Urine >182 /hpf (0-5); Specific Gravity,Urine 1.031 (1.001-1.035); Squamous Epithelial Cell,Urine 3 /hpf (0-4); Urobilinogen,Urine <2.0 mg/dL (<2.0); WBC,Urine 4 /hpf (0-5)
[2022-04-15 18:21] VITALS: BP 118/78; PULSE 76; RESP 18; TEMP 98.5
== END 2022-04-15 17:45 | disposition home or self-care (01) ==
LOC: EC 12:46
DX: O46.91 Antepartum hemorrhage, unspecified, first trimester (principal); E07.9 Disorder of thyroid, unspecified; Z3A.01 Less than 8 weeks gestation of pregnancy; Z79.890 Hormone replacement therapy; Z88.2 Allergy status to sulfonamides; Z91.040 Latex allergy status
CPT/HCPCS: 36415; 76801; 76817; 81001; 84702; 85025; 99284

== ENCOUNTER 2022-10-18 17:07 | Emergency (ER) | payer BC ==
[2022-10-18 17:28] VITALS: TEMP 98.4
[2022-10-18 19:24] LABS: Basophils % (A) 0 %; Eosinophils # (A) 0.3 k/uL (0-0.7); Eosinophils % (A) 4 %; HCT 37.1 % (34.0-46.0); HGB 12.2 gm/dL (11.4-16.0); Lymphocytes % (A) 13 %; MCH 30.4 pg (25.0-35.0); MCHC 32.9 g/dL (31.0-37.0); MCV 92.4 fL (80.0-100.0); Mean Platelet Volume 7.9; Monocytes # (A) 0.2 k/uL (0-1.0); Monocytes % (A) 3 %; Neutrophils # (A) 6.2 k/uL (1.3-7.7); Neutrophils % (A) 79 %; Platelet Count 199 k/uL (150-450); RBC 4.02 m/uL (3.80-5.40); RDW 12.9 % (11.5-15.5); WBC 7.8 k/uL (3.8-10.6)
[2022-10-18 19:33] LABS: ALT 161 U/L (4-34); AST 68 U/L (14-36); African American GFR (CKD) >90 (>60 ml/min/1.73 sqM); Albumin 3.7 g/dL (3.5-5.0); Alkaline Phosphatase 269 U/L (38-126); Amylase 42 U/L (30-110); Anion Gap 10 mmol/L; Blood Urea Nitrogen 5 mg/dL (7-17); Calcium 8.6 mg/dL (8.4-10.2); Carbon Dioxide 22 mmol/L (22-30); Chloride 101 mmol/L (98-107); Glucose 99 mg/dL (74-99); Lipase 79 U/L (23-300); Non-African American GFR(CKD) >90 (>60 ml/min/1.73 sqM); Potassium 3.3 mmol/L (3.5-5.1); Sodium 133 mmol/L (137-145); Total Bilirubin 2.6 mg/dL (0.2-1.3); Total Protein 6.9 g/dL (6.3-8.2)
--- NOTE | 2022-10-18 19:36 | ED ---
General Adult HPI - General Chief complaint: Nausea/Vomiting/Diarrhea Stated complaint: 13wk preg,hives,abn labs Time Seen by Provider: 10/18/22 19:35 Source: patient Mode of arrival: ambulatory Limitations: no limitations - History of Present Illness Initial comments: 22-year-old female presenting with chief complaint of rash. Patient is currently 13 weeks . She reports that she has had 6 days of generalized hives and redness and swelling to the hands and feet. She reports that the hands and feet are intensely pruritic. She was seen at a different ER 2 days ago and informed that her LFTs were elevated. She states she was told by her O B/ELECTRIC FURNACE OPERATOR Dr. Mcknight to report to the ER. She reports that she was spotting 2 days ago, no vaginal bleeding at this time. She admits to epigastric discomfort. No pelvic pain. She denies shortness of breath, chest pain, cough, sore throat. - Related Data Home Medications Medication Instructions Recorded Confirmed Levothyroxine Sodium 150 mcg PO HS 12/06/21 04/15/22 Previous Rx's Medication Instructions Recorded ursodioL [Ursodiol] 300 mg PO BID 5 Days #10 capsule 10/19/22 Allergies Allergy/AdvReac Type Severity Reaction Status Date / Time Sulfa (Sulfonamide Allergy Anaphylaxis Verified 10/18/22 17:28 Antibiotics) latex AdvReac Itching Verified 10/18/22 17:28 Review of Systems ROS Statement: Those systems with pertinent positive or pertinent negative responses have been documented in the HPI. ROS Other: All systems not noted in ROS Statement are negative. Past Medical History Past Medical History: Thyroid Disorder Additional Past Medical History / Comment(s): OVARIAN CYSTS, hypothyroid/graves disease History of Any Multi-Drug Resistant Organisms: None Reported Past Surgical History: No Surgical Hx Reported Additional Past Surgical History / Comment(s): endometeriosis symptoms, ovarian cysts removed Past Anesthesia/Blood Transfusion Reactions: No Reported Reaction Past Psychological History: No Psychological Hx Reported Smoking Status: Never smoker Past Alcohol Use History: None Reported Past Drug Use History: None Reported - Past Family History Father Family Medical History: Thyroid Disorder General Exam - General Exam Comments Initial Comments: Visual Physical Exam Vital signs reviewed General: Well-appearing, nontoxic, no acute distress. Head: Normocephalic, atraumatic Eyes: PERRLA, EOMI ENT: Airway patent Chest: Nonlabored breathing Skin: No visual rash, normal skin tone Neuro: Alert and oriented 3 Musculoskeletal: No gross abnormalities Limitations: no limitations General appearance: alert, in no apparent distress Head exam: Present: atraumatic, normocephalic, normal inspection Eye exam: Present: normal appearance Neck exam: Present: normal inspection, full ROM Respiratory exam: Present: normal lung sounds bilaterally. Absent: respiratory distress, wheezes, rales, rhonchi, stridor Cardiovascular Exam: Present: regular rate, normal rhythm, normal heart sounds. Absent: systolic murmur, diastolic murmur, rubs, gallop, clicks GI/Abdominal exam: Present: soft, tenderness (Epigastric). Absent: distended, guarding, rebound, rigid Neurological exam: Present: alert, oriented X3, CN II-XII intact Psychiatric exam: Present: normal affect, normal mood Skin exam: Present: warm, dry, intact, normal color, urticaria Course Vital Signs 10/18/22 10/18/22 10/19/22 17:23 21:06 01:00 Temperature 98.4 F Pulse Rate 100 68 73 Respiratory 18 20 18 Rate Blood Pressure 148/85 109/66 108/56 O2 Sat by Pulse 98 98 99 Oximetry Medical Decision Making - Medical Decision Making Was pt. sent in by a medical professional or institution (VERONA Maldonado, INTERNATIONAL PROJECT ENGINEER, urgent care, hospital, or shelter...) When possible be specific @ -Advised to report to the ER by her AIRPLANE FLIGHT ATTENDANT Did you speak to anyone other than the patient for history (EMS, parent, family, police, friend...)? What history was obtained from this source @ -Mother at bedside Did you review nursing and triage notes (agree or disagree)? Why? @ -I reviewed and agree with nursing and triage notes Were old charts reviewed (outside hosp., previous admission, EMS record, old EKG, old radiological studies, urgent care reports/EKG's, shelter records)? Report findings @ -No old charts were reviewed Differential Diagnosis (chest pain, altered mental status, abdominal pain women, abdominal pain men, vaginal bleeding, weakness, fever, dyspnea, syncope, heada yaa, dizziness, GI bleed, back pain, seizure, CVA, palpatations, mental health, musculoskeletal)? @ -Differential includes cholecystitis, choledocho, intrahepatic cholestasis, this is not an all inclusive list EKG interpreted by me (3pts min.). @ -As above X-rays interpreted by me (1pt min.). @ -None done CT interpreted by me (1pt min.). @ -None done U/S interpreted by me (1pt. min.). @ -Normal ultrasound of the abdomen. Single viable intrauterine gestation on ultrasound What testing was considered but not performed or refused? (CT, X-rays, U/S, labs)? Why? @ -None What meds were considered but not given or refused? Why? @ -None Did you discuss the management of the patient with other professionals (professionals i.e. , PA, INTERNATIONAL PROJECT ENGINEER, lab, RT, psych nurse, social work assistant, spouting installer, teacher, weapons officer naval activity, caseworker protective services)? Give summary @ -I spoke with AIRPLANE FLIGHT ATTENDANT quality control assistant Dr. White, she advised starting the patient on a short course of ursodiol and having the patient follow up with her AIRPLANE FLIGHT ATTENDANT on Friday Was smoking cessation discussed for >3mins.? @ -No Was critical care preformed (if so, how long)? @ -No Were there social determinants of health that impacted care today? How? (Homelessness, low income, unemployed, alcoholism, drug addiction, transportation, low edu. Level, literacy, decrease access to med. care, fdc, rehab)? @ -No Was there de-escalation of care discussed even if they declined (Discuss DNR or withdrawal of care, Hospice)? DNR status @ -No What co-morbidities impacted this encounter? (DM, HTN, Smoking, COPD, CAD, Cancer, CVA, ARF, Chemo, Hep., AIDS, mental health diagnosis, sleep apnea, morbid obesity)? @ -None Was patient admitted / discharged? Hospital course, mention meds given and route, prescriptions, significant lab abnormalities, going to OR and other per tinent info. @ -22-year-old female currently 13 weeks presenting with chief complaint of recurrent hives and intense itching of the hands and feet. She was seen by different ER who told her that she had elevated liver enzymes. Physical examination is unremarkable. Bilirubin is 2.6. AST 68 an ALT 161. Urine shows 2+ ketones with 2+ bilirubin. Normal and abdominal ultrasound. I spoke with AIRPLANE FLIGHT ATTENDANT quality control assistant about concerns for intrahepatic cholestasis, she advised starting the patient on a short course of ursodiol and having her follow up with her AIRPLANE FLIGHT ATTENDANT on Friday. Bile acids were sent out per her AIRPLANE FLIGHT ATTENDANT's request, which will later be used to help track the patient's progress at her follow-up appointment. Follow-up with PCP. Report back to ER with any new or worsening symptoms. Discussed return parameters and answered all questions. Patient conveyed verbal understanding and agreed to the plan. I discussed this case in detail with my attending Dr. Richey Undiagnosed new problem with uncertain prognosis? @ -No Drug Therapy requiring intensive monitoring for toxicity (Heparin, Nitro, Insulin, Cardizem)? @ -No Were any procedures done? @ -No Diagnosis/symptom? @ -Intrahepatic cholestasis of Acute, or Chronic, or Acute on Chronic? @ -Acute Uncomplicated (without systemic symptoms) or Complicated (systemic symptoms)? @ -Complicated Side effects of treatment? @ -No Exacerbation, Progression, or Severe Exacerbation? @ -No Poses a threat to life or bodily function? How? (Chest pain, [place], [place], pneumonia, PE, COPD, DKA, ARF, appy, cholecystitis, CVA, Diverticulitis, Homicidal, Suicidal, threat to staff... and all critical care pts) @ -Potential threat of early delivery - Lab Data Result diagrams: 10/18/22 18:36 10/18/22 18:36 Lab Results 10/18/22 10/18/22 10/18/22 Range/Units 18:36 18:36 18:36 WBC 7.8 (3.8-10.6) k/uL RBC 4.02 (3.80-5.40) m/uL Hgb 12.2 (11.4-16.0) gm/dL Hct 37.1 (34.0-46.0) % MCV 92.4 (80.0-100.0) fL MCH 30.4 (25.0-35.0) pg MCHC 32.9 (31.0-37.0) g/dL RDW 12.9 (11.5-15.5) % Plt Count 199 (150-450) k/uL MPV 7.9 Neutrophils % 79 % Lymphocytes % 13 % Monocytes % 3 % Eosinophils % 4 % Basophils % 0 % Neutrophils # 6.2 (1.3-7.7) k/uL Lymphocytes # 1.0 (1.0-4.8) k/uL Monocytes # 0.2 (0-1.0) k/uL Eosinophils # 0.3 (0-0.7) k/uL Basophils # 0.0 (0-0.2) k/uL Sodium 133 L (137-145) mmol/L Potassium 3.3 L (3.5-5.1) mmol/L Chloride 101 (98-107) mmol/L Carbon Dioxide 22 (22-30) mmol/L Anion Gap 10 mmol/L BUN 5 L (7-17) mg/dL Creatinine 0.46 L (0.52-1.04) mg/dL Est GFR (CKD-EPI)AfAm >90 (>60 ml/min/1.73 sqM) Est GFR (CKD-EPI)NonAf >90 (>60 ml/min/1.73 sqM) Glucose 99 (74-99) mg/dL Calcium 8.6 (8.4-10.2) mg/dL Total Bilirubin 2.6 H (0.2-1.3) mg/dL AST 68 H (14-36) U/L ALT 161 H (4-34) U/L Alkaline Phosphatase 269 H (38-126) U/L Creatine Kinase (30-135) U/L Total Protein 6.9 (6.3-8.2) g/dL Albumin 3.7 (3.5-5.0) g/dL Amylase 42 (30-110) U/L Lipase 79 (23-300) U/L HCG, Qual Detected HCG, Quant mIU/mL Urine Color Dark Brown Urine Appearance Clear (Clear) Urine pH 6.0 (5.0-8.0) Ur Specific [place] 1.031 (1.001-1.035) Urine Protein 1+ H (Negative) Urine Glucose (UA) Negative (Negative) Urine Ketones 2+ H (Negative) Urine Blood Negative (Negative) Urine Nitrite Negative (Negative) Urine Bilirubin 2+ H (Negative) Urine Urobilinogen 12.0 (<2.0) mg/dL Ur Leukocyte Esterase Trace H (Negative) Urine RBC 1 (0-5) /hpf Urine WBC 2 (0-5) /hpf Ur Squamous Epith Cells 3 (0-4) /hpf Urine Mucus Many H (None) /hpf 10/18/22 Range/Units 21:09 WBC (3.8-10.6) k/uL RBC (3.80-5.40) m/uL Hgb (11.4-16.0) gm/dL Hct (34.0-46.0) % MCV (80.0-100.0) fL MCH (25.0-35.0) pg MCHC (31.0-37.0) g/dL RDW (11.5-15.5) % Plt Count (150-450) k/uL MPV Neutrophils % % Lymphocytes % % Monocytes % % Eosinophils % % Basophils % % Neutrophils # (1.3-7.7) k/uL Lymphocytes # (1.0-4.8) k/uL Monocytes # (0-1.0) k/uL Eosinophils # (0-0.7) k/uL Basophils # (0-0.2) k/uL Sodium (137-145) mmol/L Potassium (3.5-5.1) mmol/L Chloride (98-107) mmol/L Carbon Dioxide (22-30) mmol/L Anion Gap mmol/L BUN (7-17) mg/dL Creatinine (0.52-1.04) mg/dL Est GFR (CKD-EPI)AfAm (>60 ml/min/1.73 sqM) Est GFR (CKD-EPI)NonAf (>60 ml/min/1.73 sqM) Glucose (74-99) mg/dL Calcium (8.4-10.2) mg/dL Total Bilirubin (0.2-1.3) mg/dL AST (14-36) U/L ALT (4-34) U/L Alkaline Phosphatase (38-126) U/L Creatine Kinase 29 L (30-135) U/L Total Protein (6.3-8.2) g/dL Albumin (3.5-5.0) g/dL Amylase (30-110) U/L Lipase (23-300) U/L HCG, Qual HCG, Quant 99403.8 mIU/mL Urine Color Urine Appearance (Clear) Urine pH (5.0-8.0) Ur Specific [place] (1.001-1.035) Urine Protein (Negative) Urine Glucose (UA) (Negative) Urine Ketones (Negative) Urine Blood (Negative) Urine Nitrite (Negative) Urine Bilirubin (Negative) Urine Urobilinogen (<2.0) mg/dL Ur Leukocyte Esterase (Negative) Urine RBC (0-5) /hpf Urine WBC (0-5) /hpf Ur Squamous Epith Cells (0-4) /hpf Urine Mucus (None) /hpf Disposition Clinical Impression: Intrahepatic cholestasis of Disposition: HOME SELF-CARE Condition: Good Additional Instructions: Follow-up with your AIRPLANE FLIGHT ATTENDANT on Friday. Report back to ER with any new or worsening symptoms. Prescriptions: ursodioL [Ursodiol] 300 mg PO BID 5 Days #10 capsule Is patient prescribed a controlled substance at d/c from ED?: No Referrals: Nonstaff,Physician [REFERRING] - 1-2 days Dutch Mcknight MD [STAFF PHYSICIAN] - 10/21/22 Time of Disposition: 01:36
[2022-10-18 19:50] LABS: Appearance,Urine Clear (Clear); Bilirubin,Urine 2+ (Negative); Blood,Urine Negative (Negative); Color,Urine Dark Brown; Glucose,Urine (UA) Negative (Negative); Leukocyte Esterase,Urine Trace (Negative); Mucus,Urine Many /hpf; Nitrite,Urine Negative (Negative); Protein,Urine 1+ (Negative); RBC,Urine 1 /hpf (0-5); Specific Gravity,Urine 1.031 (1.001-1.035); Squamous Epithelial Cell,Urine 3 /hpf (0-4); WBC,Urine 2 /hpf (0-5)
[2022-10-18 19:53] LABS: HCG,Qualitative Serum Detected; Ketones,Urine 2+ (Negative)
[2022-10-18] MEDS ORDERED: diphenhydrAMINE 50 MG/ML 1 ML VIAL IVP STA (21:01)
[2022-10-18] MEDS ORDERED: SODIUM CHLORIDE 0.9% 1,000 ML IV ONE (21:01)
[2022-10-19 00:20] LABS: HCG,Quantitative Serum 44702.8 mIU/mL
--- NOTE | 2022-10-19 00:36 | US ---
EXAM: US Abdomen Complete CLINICAL HISTORY: ITS.REASON US Reason: elevated bilirubin/LFTs, 13 weeks preg TECHNIQUE: Real-time ultrasound of the abdomen with image documentation. COMPARISON: No relevant prior studies available. FINDINGS: Liver: Unremarkable. No mass. No intrahepatic bile duct dilation. Gallbladder: Unremarkable. No gallstones. Common bile duct: Unremarkable as visualized. No stones. No dilation. Pancreas: Unremarkable as visualized. Kidneys: Unremarkable. No stones. No solid mass. No hydronephrosis. Spleen: Unremarkable. No splenomegaly. Aorta: Unremarkable. No abdominal aortic aneurysm. Inferior vena cava: Unremarkable. IMPRESSION: Normal abdominal ultrasound.
--- NOTE | 2022-10-19 00:38 | US ---
EXAM: US First Trimester , Transabdominal CLINICAL HISTORY: ITS.REASON US Reason: 13 weeks preg, abd pain TECHNIQUE: Real-time transabdominal obstetrical ultrasound of the maternal pelvis and a first trimester with image documentation. COMPARISON: No relevant prior studies available. FINDINGS: Gestation: Single viable intrauterine gestation with heart rate of 153 bpm. [place]-rump length measures 6.95 cm giving estimated gestational age of 13 weeks 2 days. Placenta/amniotic fluid: Cannot be adequately evaluated due to the early gestational age. Uterus/cervix: Unremarkable. No myometrial mass. Ovaries: Unremarkable. No mass. Free fluid: No free fluid. IMPRESSION: Single viable intrauterine gestation
[2022-10-19 01:16] VITALS: BP 108/56; PULSE 73; RESP 18
== END 2022-10-19 01:47 | disposition home or self-care (01) ==
LOC: EC 17:07
DX: O26.891 Other specified pregnancy related conditions, first trimester (principal); O99.281 Endocrine, nutritional and metabolic diseases complicating pregnancy, first trimester; E78.79 Other disorders of bile acid and cholesterol metabolism; K76.89 Other specified diseases of liver; E03.9 Hypothyroidism, unspecified; Z79.890 Hormone replacement therapy; Z88.1 Allergy status to other antibiotic agents; Z88.2 Allergy status to sulfonamides; Z91.040 Latex allergy status; Z3A.13 13 weeks gestation of pregnancy
CPT/HCPCS: 36415; 80053; 82150; 82550; 83690; 85025; 81001; 84703; 84702; 76705; 76801; 99284; 96374; 96361; J1200; 82239

== ENCOUNTER 2023-04-08 16:57 | Outpatient (CLI) | payer BC ==
[2023-04-08 17:40] VITALS: BP 118/74; PULSE 85; RESP 16; TEMP 95.6
== END 2023-04-08 17:30 | disposition home or self-care (01) ==
LOC: FBPOP 16:57
PROVIDERS: ATTEND Obstetrics & Gynecology
DX: O36.8131 Decreased fetal movements, third trimester, fetus 1 (principal); Z3A.38 38 weeks gestation of pregnancy; Z88.2 Allergy status to sulfonamides; Z91.040 Latex allergy status
CPT/HCPCS: 59025

== ENCOUNTER 2023-04-18 02:00 | Outpatient (CLI) | payer BC ==
[2023-04-18 05:06] VITALS: BP 116/76; PULSE 88; RESP 16; TEMP 95.8
--- NOTE | 2023-05-21 11:42 | P.MSEPDOC ---
Presenting Problems - Arrival Data Date of Arrival on Unit: 04/18/23 Time of Arrival on Unit: 02:00 Mode of Transport: Ambulatory - Complaint OB-Reason for Admission/Chief Complaint: Possible Onset of Labor Medical History - Information : 2 Para: 1 Term: 1 : 0 Abortions: Spontaneous or Elective: 0 Number of Living Children: 1 - Gestational Age Gestational Age by TEQUILA (wks/days): 39 Weeks and 3 Days Review of Systems - Review of Systems Constitutional: No problems Breast: No problems ENT: No problems Cardiovascular: No problems Respiratory: No problems Gastrointestinal: No problems Genitourinary: No problems Musculoskeletal: No problems Neurological: No problems Skin: No problems Vital Signs - Temperature Temperature: 95.8 F Temperature Source: Temporal Artery Scan - Pulse Pulse Oximetery Pulse Rate: 88 Pulse Assessment Method: Pulse Oximetry - Respirations Respiratory Rate: 16 Oxygen Delivery Method: Room Air O2 Sat by Pulse Oximetry: 98 - Blood Pressure Right Arm Blood Pressure: 116/76 Blood Pressure Mean: 89 Blood Pressure Source: Automatic Cuff Physician Notification - Physician Notified Physician Notified Date: 04/18/23 Physician Notified Time: 03:28 Physician: Livier Connelly New Order Received: Yes (Discharge home if no cervical change.) Maternal Triage Index - Maternal Triage Index Presenting for scheduled procedure w/no complaint: No - Stat/Priority 1 Stat Priority 1: No - Urgent/Priority 2 Urgent Priority 2: No - Prompt/Priority 3 Prompt Priority 3: No - Non-Urgent/Priority 4 Non-Urgent Priority 4: Yes Criteria Met for Priority 4: [facility] complaints of contractions that started 04/17/23 2200. Patient rating her pain with contractions 3/10. Disposition - Disposition OB Disposition: Discharge to home I agree with the RN Medical Screening Exam: Yes Case reviewed; plan agreed upon as documented in EMR&OBIX.: Yes Diagnosis: FALSE LABOR AT OR AFTER 37 COMPLETED WEEKS OF GESTATION
== END 2023-04-18 04:50 ==
LOC: FBPOP 02:00
PROVIDERS: ATTEND Obstetrics & Gynecology Obstetrics
DX: O47.1 False labor at or after 37 completed weeks of gestation (principal); Z3A.39 39 weeks gestation of pregnancy; Z88.2 Allergy status to sulfonamides; Z91.040 Latex allergy status
CPT/HCPCS: 59025; 99213

== ENCOUNTER 2023-04-23 06:00 | Inpatient (IN) | payer BC ==
[2023-04-23] MEDS ORDERED: METHYLERGONOVINE 0.2 MG/ML 1 ML AMP IM PRN (06:15)
[2023-04-23] MEDS ORDERED: OXYTOCIN 10 UNIT/ML 1 ML VIAL IM PRN (06:15)
[2023-04-23] MEDS ORDERED: OXYTOCIN 30 UNITS/500 ML NS 30 UNIT in SALINE 1 500ML.BAG IV SCH ×2 (06:15→11:15)
[2023-04-23] MEDS ORDERED: TRANEXAMIC 1,000 MG/100ML-NACL 1,000 MG in EMPTY BAG 1 BAG IV PRN (06:15)
[2023-04-23] MEDS ORDERED: LACTATED RINGERS 1,000 ML IV SCH (06:15)
[2023-04-23] MEDS ORDERED: LIDOCAINE 0.5% (PF) 5 MG/ML (50 ML SDV) SQ PRN (06:15)
[2023-04-23] MEDS ORDERED: miSOPROStoL 200 MCG TAB PO PRN (06:15)
[2023-04-23] MEDS ORDERED: TERBUTALINE 1 MG/ML VIAL SQ PRN (06:15)
[2023-04-23] MEDS ORDERED: CARBOPROST TROMETHAMINE 250 MCG/ML 1 ML AMP IM PRN (06:15)
[2023-04-23] MEDS ORDERED: PENICILLIN G POTASSIUM 5,000,000 UNIT in DEXTROSE 5% IN WATER 100 ML IVPB STA ×2 (06:25)
[2023-04-23 06:45] LABS: Basophils % (A) 0 %; Eosinophils # (A) 0.2 k/uL (0-0.7); Eosinophils % (A) 2 %; HCT 35.5 % (34.0-46.0); HGB 12.2 gm/dL (11.4-16.0); Lymphocytes # (A) 4.4 k/uL (1.0-4.8); Lymphocytes % (A) 35 %; MCH 31.7 pg (25.0-35.0); MCHC 34.3 g/dL (31.0-37.0); MCV 92.4 fL (80.0-100.0); Mean Platelet Volume 8.2; Monocytes # (A) 0.4 k/uL (0-1.0); Monocytes % (A) 3 %; Neutrophils # (A) 7.5 k/uL (1.3-7.7); Neutrophils % (A) 59 %; Platelet Count 202 k/uL (150-450); RBC 3.84 m/uL (3.80-5.40); RDW 13.1 % (11.5-15.5); WBC 12.8 k/uL (3.8-10.6)
[2023-04-23] MEDS ORDERED: NALBUPHINE 10 MG/ML (10 ML MDV) IV PRN (08:53)
--- NOTE | 2023-04-23 08:58 | P.HPOB ---
History of Present Illness H&P Date: 04/23/23 Chief Complaint: 40 and one sevenths weeks, induction The patient is a 22-year-old 4 para 1021 admitted at 40 and one sevenths weeks as established by last menstrual period and confirmed by seven-week ultrasound. She is admitted for induction of labor with all signs reassuring, category 1 heart rate tracing. Her was essentially uncomplicated though she did have a period of several weeks in the early second trimester at which time she had unexplained elevated liver functions with some mild jaundice and subsequent total body itching which resolved spontaneously. Workup was negative for any form of hepatitis or other obvious cause of these findings. She has not had further issues with this during the . Group B strep status is otherwise positive. Obstetrical history: 4 para 1021 with 1 term vaginal delivery in 2 early losses. Current statistics are listed in history of present illness. EDC of 04/22/2023 was established by phylicia Altman. And confirmed by seven-week ultrasound. Laboratory workup demonstrated blood type of A+ with a negative antibody screen. Rubella status is immune. The remainder of laboratory workups within normal limits. Early Glucola as well as second trimester Glucola were within normal limits and group B strep status is positive. Gynecologic history: Unremarkable with no history of any infections to include STDs. Review of Systems Review of systems is confined to history of present illness. Past Medical History Past Medical History: Thyroid Disorder Additional Past Medical History / Comment(s): OVARIAN CYSTS, hypothyroid/graves disease History of Any Multi-Drug Resistant Organisms: None Reported Past Surgical History: No Surgical Hx Reported Additional Past Surgical History / Comment(s): endometeriosis symptoms, ovarian cysts removed Past Anesthesia/Blood Transfusion Reactions: No Reported Reaction Past Psychological History: No Psychological Hx Reported Smoking Status: Never smoker Past Alcohol Use History: None Reported Past Drug Use History: None Reported - Past Family History Father Family Medical History: Thyroid Disorder Medications and Allergies Home Medications Medication Instructions Recorded Confirmed Type Levothyroxine Sodium 150 mcg PO HS 12/06/21 04/23/23 History Vit No.179/Iron/Folic 1 each PO DAILY 04/08/23 04/23/23 History [ Tablet] Allergies Allergy/AdvReac Type Severity Reaction Status Date / Time Sulfa (Sulfonamide Allergy Anaphylaxis Verified 04/08/23 17:18 Antibiotics) latex AdvReac Itching Verified 04/08/23 17:18 Exam Vital Signs Temp Pulse Resp BP Pulse Ox 04/23/23 06:12 96.6 F L 96 16 114/73 97 Intake and Output 04/22/23 04/23/23 04/23/23 22:59 06:59 14:59 Other: Weight 96.162 kg In general, this is a well-developed, well-nourished white female in no acute distress. Her heart has a regular rhythm and rate without murmur. Her lungs clear to auscultation bilaterally in all [place]. Her abdomen is gravid, nondistended, has normal active bowel sounds, soft, nontender, and without any palpable masses aside from the uterine fundus. Her extremities are without any cyanosis, clubbing, or significant edema and are nontender to palpation bi laterally. Digital cervical examination on straights her cervix to be 2+ meters dilated, 60% effaced, with the vertex in presentation at -2 station. Artificial rupture of membranes is carried out demonstrating clear fluid. Results Result Diagrams: 04/23/23 06:25 Abnormal Lab Results - Last 24 Hours (Table) 04/23/23 Range/Units 06:25 WBC 12.8 H (3.8-10.6) k/uL Assessment and Plan (1) Group B streptococcal infection in Current Visit: Yes Status: Acute Code(s): O98.819 - OTH MATERNAL INFEC/PAR ASTC DISEASES COMP PREG, UNSP TRI; B95.1 - STREPTOCOCCUS, GROUP B, CAUSING DISEASES [facility] SNOMED Code(s): 463512052 (2) Post-dates Current Visit: Yes Status: Acute Code(s): O48.0 - POST-TERM SNOMED Code(s): 20098604 Plan: The patient is admitted for induction of labor. Pitocin augmentation has been started as has antibiotic prophylaxis for group B strep. She has undergone artificial rupture members. She will have close maternal and surveillance and expectant management will be practiced. She is a good candidate for either IV, epidural, or nitrous analgesia, whichever she may choose.
[2023-04-23] MEDS ORDERED: SODIUM CHLORIDE 0.9% 250 ML BAG ONE (09:54)
[2023-04-23] MEDS ORDERED: fentaNYL (PF) 50 MCG/ML 5 ML AMP ONE (09:54)
[2023-04-23] MEDS ORDERED: ROPIVACAINE 5 MG/ML 30 ML VIAL ONE (09:54)
[2023-04-23] MEDS ORDERED: PENICILLIN G POTASSIUM 2,500,000 UNIT in DEXTROSE 5% IN WATER 100 ML IVPB SCH ×2 (10:30)
[2023-04-23] MEDS ORDERED: diphenhydrAMINE 25 MG CAP PO PRN (11:06)
[2023-04-23] MEDS ORDERED: ACETAMINOPHEN TAB 325 MG TAB PO PRN (11:06)
[2023-04-23] MEDS ORDERED: HYDROCORTISONE 2.5% RECTAL CREAM 30 GM TUBE RECTAL PRN (11:06)
[2023-04-23] MEDS ORDERED: BENZOCAINE/MENTHOL SPRAY 1 GM/SPRAY AEROSOL TOPICAL PRN (11:06)
[2023-04-23] MEDS ORDERED: HYDROcodone/APAP 5-325MG 1 EACH TAB PO PRN (11:06)
[2023-04-23] MEDS ORDERED: diphenhydrAMINE 50 MG CAP PO PRN (11:06)
[2023-04-23] MEDS ORDERED: HYDROcodone/APAP 7.5-325MG 1 EACH TAB PO PRN (11:06)
[2023-04-23] MEDS ORDERED: ZOLPIDEM 5 MG TAB PO PRN (11:06)
[2023-04-23] MEDS ORDERED: SIMETHICONE 80 MG CHEWABLE PO PRN (11:06)
[2023-04-23] MEDS ORDERED: diphenhydrAMINE 50 MG/ML 1 ML VIAL IVP PRN ×2 (11:06)
[2023-04-23] MEDS ORDERED: LANOLIN CREAM 5 GM TUBE TOPICAL PRN (11:06)
--- NOTE | 2023-04-23 11:11 | P.PROBDLV ---
Vaginal Delivery Note - . Vaginal Delivery Note: The patient is a 22-year-old 4 para 1021 admitted at 40 and one sevenths weeks by good dating parameters. She is admitted for induction of labor with all signs reassuring. Her has been essentially uncomplicated though she had elevated liver functions for unknown reasons in the early second trimester which resolved spontaneously and was thought to be secondary to a viral insult. Remainder of her was uncomplicated and group B strep status was determined to be positive. On labor and delivery, she had a category 1 heart rate tracing. She had Pitocin started as well as antibiotic prophylaxis for group B strep. She underwent artificial rupture of membranes for clear fluid. She progressed to the onset of the active phase of labor and had an epidural catheter placed for analgesia. She then progressed extraordinarily rapidly through the active phase of labor to complete and 0 station. She pushed over the course of one prolonged contraction to a normal spontaneous vaginal delivery of a viable 8 lbs. 3 oz. baby boy with Apgars of 9 at 1 minute and 10 at 5 minutes delivered in the direct occiput anterior position. The placenta was delivered spontaneously, intact, and grossly normal with a grossly normal three-vessel cord inserted approximate 4 synovators from the margin of the placental disc. There were no lacerations of the perineum, vagina, or cervix. There was however a non-expanding hematoma on the right fidel ian body which was treated with an ice pack. Estimated blood loss for the case was approximate 150 mL. There were no complications. All sponge, instrument, and needle counts were correct. Both mother and are resting comfortably in recovery.
[2023-04-23] MEDS: SENNOSIDES-DOCUSATE SODIUM 1 EACH TAB PO SCH (20:40)
[2023-04-23 20:51] VITALS: RESP 16
[2023-04-24] MEDS: IBUPROFEN 600 MG TAB PO PRN ×2 (02:05→07:59)
[2023-04-24 07:49] LABS: Basophils % (A) 0 %; Eosinophils # (A) 0.2 k/uL (0-0.7); Eosinophils % (A) 1 %; Lymphocytes % (A) 19 %; MCH 31.3 pg (25.0-35.0); MCHC 33.4 g/dL (31.0-37.0); MCV 93.8 fL (80.0-100.0); Mean Platelet Volume 8.2; Monocytes # (A) 0.4 k/uL (0-1.0); Monocytes % (A) 2 %; Neutrophils # (A) 11.7 k/uL (1.3-7.7); Neutrophils % (A) 76 %; Platelet Count 195 k/uL (150-450); RBC 3.84 m/uL (3.80-5.40); RDW 13.3 % (11.5-15.5); WBC 15.4 k/uL (3.8-10.6)
[2023-04-24] MEDS: SENNOSIDES-DOCUSATE SODIUM 1 EACH TAB PO SCH (07:59)
[2023-04-24 08:28] VITALS: BP 120/72; PULSE 81; TEMP 97.7
--- NOTE | 2023-04-24 08:55 | P.DS ---
Providers Date of admission: 04/23/23 06:00 Expected date of discharge: 04/24/23 Attending physician: Dutch Mcknight Primary care physician: Stated None Hospital Course: Ms. Kenny is a 22 year old now status post delivery after induction of labor at 40 and one sevenths weeks by good dating parameters. She had a normal vaginal delivery of a viable male . She had no lacerations and a non- expanding hematoma was noted. The patient is doing well this morning and had no acute events overnight. She has no complaints this morning. She reports minimal lochia, passing flatus, voiding without difficulty, ambulating, and eating/dr inking without nausea or vomiting. Infant doing well at bedside, s/p circumcision. She denies chest pain, shortness of breathing, fevers, or chills overnight. She denies pain or swelling in the legs. restrictions are reviewed with the patient including pelvic rest for 6 weeks. The patient is encouraged to call the office if she experiences any heavy bleeding, foul- smelling discharge, breast complaints, or any if she has any other concerns. She will follow up in the office with Dr. Mcknight in 6 weeks for postpostpartum exam. All questions are answered. Assessment: 22 year old now PPD#1 s/p normal vaginal delivery Plan - Discharge Summary Discharge Rx Participant: No New Discharge Prescriptions: No Action Vit No.179/Iron/Folic [ Tablet] 1 each PO DAILY Levothyroxine Sodium 150 mcg PO HS Discharge Medication List Levothyroxine Sodium 150 mcg PO HS 12/06/21 [History] Vit No.179/Iron/Folic [ Tablet] 1 each PO DAILY 04/08/23 [History] Follow up Appointment(s)/Referral(s): Dutch Mcknight MD [STAFF PHYSICIAN] - 6 Weeks Activity/Diet/Wound Care/Special Instructions: Instructions 1. Do not begin any exercise program for 3 weeks. 2. Do not resume sexual relations for 6 weeks or longer if uncomfortable. 3. You may take tub baths or showers at any time. 4. You may use tampons if desired after 6 weeks. 5. Keep any areas repaired with stitches clean and dry. 6. If you are not nursing, wear a good fitting, supportive bra during the day and limit fluid intake for at least 1 week to prevent breast engorgement. 7. Call the office, , within the next week to make appointment for your 6 week checkup if it has not already been made. 8. Report any of the following occurrences to the doctor promptly: a. Heavy, excessive bleeding b. Chills, fever c. Burning or frequency of urination d. Pain or redness and breasts if nursing e. Increasing pain or swelling of vulva (stitches). In addition to the above instructions, the following additional should be followed: 1. No heavy lifting or straining (exercising) until after 6 week checkup. 2. Keep abdominal incision clean and dry: You may wear a dressing if more comfortable. 3. Make office appointment for 2 weeks after delivery date. Discharge Disposition: HOME SELF-CARE
== END 2023-04-24 12:15 | disposition home or self-care (01) | DRG 807 ==
LOC: 4FBP 06:00
PROVIDERS: ADMIT Obstetrics & Gynecology; ATTEND Obstetrics & Gynecology
PROC: 10E0XZZ Delivery of Products of Conception, External Approach (ICD-10-PCS; principal; 2023-04-23)
PROC: 10907ZC Drainage of Amniotic Fluid, Therapeutic from Products of Conception, Via Natural or Artificial Opening (ICD-10-PCS; 2023-04-23)
DX: O98.82 Other maternal infectious and parasitic diseases complicating childbirth (principal); Z37.0 Single live birth; B95.1 Streptococcus, group B, as the cause of diseases classified elsewhere; E03.9 Hypothyroidism, unspecified; O99.824 Streptococcus B carrier state complicating childbirth; O99.284 Endocrine, nutritional and metabolic diseases complicating childbirth; O48.0 Post-term pregnancy; Z3A.40 40 weeks gestation of pregnancy
CPT/HCPCS: 85025; 86850; 86900; 86901